=== PATIENT | male | born 1960 | race Hispanic/Latino ===

== ENCOUNTER 2016-10-18 13:21 | Day surgery (SDC) | payer MEDICARE, OTHER ==
[2016-09-29 12:29] VITALS: BMI 32.2
[2016-10-18] MEDS ORDERED: Lidocaine 1%/Epinephrine 1:100000 30 ml vial ONE (14:19)
[2016-10-18] MEDS ORDERED: Propofol 10 mg/ml Inj (20 ML) ONE ×2 (18:14→19:10)
[2016-10-18] MEDS ORDERED: Midazolam 2 MG/2 ML VIAL ONE (18:14)
[2016-10-18] MEDS ORDERED: Lidocaine 1% Inj (20ml) ONE (18:19)
[2016-10-18] MEDS ORDERED: Lactated Ringer's 1,000 ML IV SCH (19:48)
[2016-10-18 19:58] VITALS: TEMP 97.8
[2016-10-18 20:03] VITALS: O2SAT 98
[2016-10-18 20:16] VITALS: BP 135/78; PULSE 60; RESP 18
--- NOTE | 2016-10-19 13:56 | RAD ---
PROCEDURE: Fluoroscopy up to 1 hour HISTORY: PERMANENT SPINAL CORD STIMULATOR INSERTION COMPARISON: TECHNIQUE: Fluoroscopy was provided in the operating room. 7 minutes 22 seconds of fluoro time. Five images were submitted FINDINGS: The study shows placement of epidural spinal leads terminating at the T8 level IMPRESSION: As above
--- NOTE | 2016-10-27 05:23 | OP ---
PROCEDURE DATE: 10/18/2016 TYPE OF SURGERY: 1. Implantation of right Octrode [facility] spinal cord stimulator lead. 2. Implantation of left Octrode [facility] spinal cord stimulator lead. 3. Creation of right gluteal subcutaneous pocket. 4. Implantation of non-rechargeable internal pulse generator. 5. Intraoperative programming of spinal cord stimulator. 6. Fluoroscopic guidance. PREOPERATIVE DIAGNOSES: 1. Chronic pain syndrome. 2. Both laminectomy syndrome with lumbar fusion. 3. Lumbosacral radiculopathy. POSTOPERATIVE DIAGNOSES: 1. Chronic pain syndrome. 2. Both laminectomy syndrome with lumbar fusion. 3. Lumbosacral radiculopathy. SURGEON: Wes Park MD TYPE OF ANESTHESIA: Local anesthesia, conscious sedation. ANESTHESIA ADMINISTERED BY: Dr. Clemente. BLOOD LOSS: Minimal. DESCRIPTION OF PROCEDURE: The patient signed an informed consent form in the preop area after all risks and complications were explained and all questions were answered. An IV was started in the preop area and IV fluid administration continued throughout the procedure. Blood pressure, pulse rate, pulse oximetry were monitored throughout the procedure. Intravenous sedation appropriate to the procedure was administered throughout the procedure and was accurately monitored by the anesthesiologist. A 2 gm of IV Ancef was administered preoperatively. The patient was prepped and draped in the sterile fashion in the prone position. The patient's spine was surveyed under fluoroscopic visualization and appropriate anatomical landmarks were identified. Implantation of right [facility] Octrode spinal cord stimulator lead - After appropriate local anesthesia, was 1% lidocaine with epinephrine are mixed to sodium bicarbonate as a buffer using 25-gauge 1-1/2 inch needle and 25-gauge 3-1/2 inch spinal need for deeper tissue. A 3 cm vertical incision was made in the lumbar area above T12-L1 epidural space. Through this incision, a 14-gauge 4 inch Touhy needle was inserted through anesthetized tract of tissue down to the T12-L1 epidural space using right paramedian approach. The epidural space was identified using loss of resistance technique and after negative aspiration for cerebrospinal fluid or blood, the [facility] [facility] Octrode lead was inserted through the Touhy epidural needle and advanced epidural space to the top of T8 vertebral body, essentially midline and slightly to the right. At this point, the spinal cord stimulator was activated and tested and at no point, the patient experienced rib pain or abdominal pain and he experienced coverage of the right side of the lower back and bilateral lower extremity, right more than left. At this point, the needle was removed under direct fluoroscopic visualization using a push-pull technique making sure that the lead did not move under direct fluoroscopic visualization. After removal of the Touhy needle, the lead was anchored to the deep fascia using two of 2 Nurolon sutures. Implantation of the left Octrode spinal cord stimulator lead - After appropriate local anesthesia, was 1% lidocaine with epinephrine are mixed to sodium bicarbonate as a buffer using 25 gauge 1-1/2 inch needle and 25 gauge 3-1/2 inch spinal need for deeper tissue. A 3 cm vertical incision was made in the lumbar area above T12-L1 epidural space. Through this incision, a 14-gauge 4-inch Touhy needle was inserted through anesthetized tract of tissue down to the T12-L1 epidural space using left paramedian approach. The epidural space was identified using loss of resistance technique and after negative aspiration for cerebrospinal fluid or blood, the [facility] [facility] Octrode lead was inserted through the Touhy epidural needle and advanced epidural space to the top of T8 vertebral body, essentially midline and slightly to the left. At this point, the spinal cord stimulator was activated and tested and at no point, the patient experienced rib pain or abdominal pain and he experienced coverage of the left side of the lower back and bilateral lower extremity, left more than right. At this point, the needle was removed under direct fluoroscopic visualization using a push-pull technique making sure that the lead did not move under direct fluoroscopic visualization. After removal of the Touhy needle, the lead was anchored to the deep fascia using two of 2 Nurolon sutures. Creation of right gluteal subcutaneous pocket - After appropriate local anesthesia, was 1% lidocaine with epinephrine. A 6-cm horizontal incision was made on the right gluteal area right under the patient belt line. The pocket was created to be approximately 1-2 cm deeper to the skin surface. Proper hemostasis was maintained and a generous pocket was created for the internal pulse generator. Tunneling of the spinal cord stimulator leads - At this point, the distal end of the leads were tunneled using a tunneler device from the midline lumbar incision to the superomedial corner of the right gluteal pocket. The distal end of the spinal cord stimulator were retrieved in the right gluteal bucket. Implantation of non-rechargeable [facility] [facility] internal pulse narrator - At this point, the non-rechargeable [facility] internal pulse generator was connected to the distal end of spinal cord stimulator and was implanted in the right gluteal pocket. At this point, the system was tested and the connection were tested and everything was intact. At this point, both midline and right gluteal incision were closed using 2-0 Vicryl suture for subcutaneous tissue and skin glue for the skin. Both incisions were covered with sterile dressing. The patient tolerated the procedure very well, was in good condition at the conclusion of the procedure. COMPLICATIONS: None. DISPOSITION: 1. The patient was discharged to recovery room in good condition. 2. Discharge instructions provided and explained. 3. Call for any questions or concerns. 4. Prescription of Keflex 500 mg one p.o. q.i.d. #28. 5. Again, re-program of the spinal cord stimulator in the recovery room provided, the patient with excellent coverage for his lower back and bilateral lower extremity. 6. The patient to return to the office in 10-14 days for followup. Wes Park MD MTDD
== END 2016-10-18 21:30 | disposition home or self-care (01) ==
LOC: SDS 13:21 → 5RNO 20:10 → SDS 21:30
PROVIDERS: ATTEND Specialist
DX: M54.17 Radiculopathy, lumbosacral region (principal); E03.9 Hypothyroidism, unspecified; Z88.3 Allergy status to other anti-infective agents; Z88.2 Allergy status to sulfonamides; Z88.8 Allergy status to other drugs, medicaments and biological substances; Z91.018 Allergy to other foods; E11.9 Type 2 diabetes mellitus without complications
CPT/HCPCS: 63650; 63685; 76000; C1778; C1822; J0690; J1885; J2250; J2405; J2704; J7120 ×2